=== PATIENT | male | born 2000 | race African-American/Black ===

== ENCOUNTER 2023-12-12 21:20 | Emergency (ER) | payer SELFPAY ==
[~2023-12-12] VITALS: Ht 160 cm; Wt 70.5 kg
[2023-12-12 21:22] VITALS: TEMP 98.2
[2023-12-12] MEDS ORDERED: Mag/Al Hydrox/Simeth Susp 30 ML CUP PO ONE (21:30)
[2023-12-12] MEDS ORDERED: NS 1,000 ML IV ONE (21:30)
[2023-12-12] MEDS ORDERED: Ketorolac 30 MG/ML VIAL IV ONE (21:30)
[2023-12-12] MEDS ORDERED: diphenhydrAMINE 50 MG/ML 1 ML VIAL IV ONE (21:30)
[2023-12-12 21:40] LABS: BASO % 0.5 % (0.0-2.0); EOS % 0.9 % (0.0-4.0); GRAN # 2.8 K/mm3 (1.4-6.5); GRAN % 64.9 % (42.2-75.2); HEMATOCRIT 43.4 % (42.0-52.0); HEMOGLOBIN 14.8 g/dl (13.5-18.0); LYMPH # 0.9 K/mm3 (1.2-3.4); LYMPH % 21.1 % (20.0-51.0); MEAN CELL VOLUME 86 fl (80.0-100.0); MEAN CORPUSCULAR HEMOGLOBIN 29 pg (27-31); MEAN CORPUSCULAR HGB CONC 34 g/dl (33.0-37.0); MEAN PLATELET VOLUME 9.2 fl (7.4-10.4); MONO # 0.5 K/mm3 (0.1-0.6); MONO % 12.4 % (1.7-9.3); PLATELET COUNT 235 K/mm3 (130-400); RED BLOOD COUNT 5.07 M/mm3 (4.20-5.60); REDCELL DISTRIBUTION WIDTH-CV 12.2 % (11.5-14.5)
[2023-12-12 21:59] LABS: ANION GAP 10 mmol/L (7-16); BLOOD UREA NITROGEN 12 mg/dL (9-21); CALCIUM 9.6 mg/dL (8.4-10.2); CHLORIDE 106 mEq/L (98-107); CREATININE, serum 1.18 mg/dL (0.72-1.25); GLUCOSE 128 mg/dL (70-99); POTASSIUM 3.6 mEq/L (3.5-4.5); SODIUM 139 mEq/L (136-145)
[2023-12-12 22:08] LABS: TROPONIN-I < 0.010 ng/mL (0.00-0.033)
[2023-12-13 00:08] VITALS: BP 119/69; PULSE 64
== END 2023-12-12 23:45 | disposition home or self-care (01) ==
LOC: COL.ER 21:20 → EDBD 21:21 → COL.ER 23:45
PROVIDERS: Internal Medicine
DX: R07.89 Other chest pain (principal); R51.9 Headache, unspecified; R11.2 Nausea with vomiting, unspecified; F12.90 Cannabis use, unspecified, uncomplicated; F17.200 Nicotine dependence, unspecified, uncomplicated
CPT/HCPCS: J1200; J1885; J7030